=== PATIENT | female | born 1950 | race Caucasian/White ===

== ENCOUNTER → 2017-05-23 | Outpatient (CLI) | payer OTHER ==
[~2017-05-23] MED LIST: ATOR-22 PO; ATV1 PO; B-CO1CAP5; BIOT1CAP3 PO; BLACK CHERRY PO; CALC-393 PO; CHOL20005 PO; CITA20TA9 PO; FLAX12003 PO; FSMD/70 PO; LISI40TA PO; MELO7.5T5 PO; PROP80TA2 PO; ROSU5TAB PO; SIME1CAP28 PO; TRAM-10 PO; VITACAP26; [UNRECOGNIZED DRUG - CODE] PO
[2017-05-23 17:01] LABS: BLOOD UREA NITROGEN 28 mg/dl (7-18)
== END | disposition home or self-care (01) ==
LOC: C.LABBC 14:54
PROVIDERS: ATTEND Anesthesiology
DX: M48.06 Spinal stenosis, lumbar region (principal)

== ENCOUNTER → 2017-05-25 | Outpatient (CLI) | payer OTHER ==
[~2017-05-25] MED LIST changes: -ATV1 PO; -BLACK CHERRY PO; +GADAVIST IV PRN; -ROSU5TAB PO
--- NOTE | 2017-05-25 14:00 | DIAGNOSTIC IMAGING REPORT ---
LUMBAR SPINE MRI WITH AND WITHOUT CONTRAST HISTORY: Pain. Radiculopathy. LUMBAR RADICULOPATHY TECHNIQUE: Multiplanar multisequence MRI of the lumbar spine was performed both before and after the intravenous administration of contrast. COMPARISON: 04/26/2016 FINDINGS: For the purpose of the report the L5-S1 disc space will be located on axial image 27 of 30. Considerable degenerative and postoperative change throughout the entire lumbar region. Operative findings consistent with laminectomies and fusion as well as interpedicular screws from L4 through S1. L3-L4 fusion. All findings appear unchanged compared to the prior study. L1-L2: Broad-based bulging disc. Mild multifactorial narrowing of the spinal canal. No change from the prior study. L2-L3: Moderate spinal stenosis unchanged from the prior study. Moderate/rather significant narrowing of the neuroforamina bilaterally. L3-L4: L3-L4 fusion. Moderate spinal stenosis unchanged. Moderate bilateral foraminal stenosis unchanged L4-L5: Postoperative changes stable. Significant multifactorial spinal stenosis. Similar study compared to the prior exam. L5-S1: Broad-based bulging disc unchanged in the prior study. Mild impact upon the anterior thecal sac. Improved posterior postoperative change within the soft tissues. Bilateral neural foraminal narrowing similar compared to the prior study. IMPRESSION: 1. Findings consistent with generalized degenerative disc change combined with prior operative changes as described. 2. Multilevel spinal stenosis as well as bilateral foraminal narrowing unchanged compared to the prior study. 3. Overall, no change compared to the prior study Electronically signed by: Oren Aaron M.D. 05/25/2017 1:59 PM Dictated Date/Time: 05/25/2017 1:52 PM
== END | disposition home or self-care (01) ==
LOC: C.OPENMRI 11:55
PROVIDERS: ATTEND Anesthesiology
DX: M54.16 Radiculopathy, lumbar region (principal); M99.73 Connective tissue and disc stenosis of intervertebral foramina of lumbar region

== ENCOUNTER 2023-04-26 05:58 | Observation (INO) ==
--- NOTE | 2023-04-07 09:59 | PAT Medication Instructions ---
Medication Instructions Date of Service April 07, 2023 Home Medications Keto Supplement 1 dose PO BID acetaminophen 500 mg tablet (Tylenol Extra Strength) 1,000 mg PO BID ascorbic acid (vitamin C) 500 mg tablet (Vitamin C) 500 mg PO QAM aspirin 81 mg tablet,delayed release 81 mg PO QAM biotin 5,000 mcg chewable tablet 5,000 mcg PO QAM calcium carbonate 500 mg-vitamin D3 3.125 mcg (125 unit) tablet 1 tab PO BID cholecalciferol (vitamin D3) 50 mcg (2,000 unit) tablet (Vitamin D3) 50 mcg PO BID gabapentin 300 mg capsule 300 mg PO DIRECTED melatonin 2.5 mg chewable tablet 2.5 mg PO HS metoprolol succinate 100 mg tablet,extended release 24 hr 100 mg PO HS pantoprazole 40 mg tablet,delayed release (Protonix) 40 mg PO QAM rosuvastatin 20 mg tablet (Crestor) 20 mg PO HS sour santos extract 1,000 mg capsule (Tart Santos Extract) 1,000 mg PO BID tramadol 50 mg tablet 50 mg PO BID venlafaxine 37.5 mg tablet 37.5 mg PO Q OTHER DAY venlafaxine 75 mg tablet 75 mg PO QAM Continue as directed gabapentin 300 mg capsule 300 mg PO DIRECTED venlafaxine 37.5 mg tablet 37.5 mg PO Q OTHER DAY STOP taking 2 weeks before surgery (or as soon as possible if surgery is within 2 weeks) Keto Supplement 1 dose PO BID biotin 5,000 mcg chewable tablet 5,000 mcg PO QAM sour santos extract 1,000 mg capsule (Tart Santos Extract) 1,000 mg PO BID DO NOT take the morning of surgery ascorbic acid (vitamin C) 500 mg tablet (Vitamin C) 500 mg PO QAM calcium carbonate 500 mg-vitamin D3 3.125 mcg (125 unit) tablet 1 tab PO BID cholecalciferol (vitamin D3) 50 mcg (2,000 unit) tablet (Vitamin D3) 50 mcg PO BID Take morning of surgery With a small sip of water, OTHERWISE NOTHING TO EAT OR DRINK AFTER MIDNIGHT: acetaminophen 500 mg tablet (Tylenol Extra Strength) 1,000 mg PO BID aspirin 81 mg tablet,delayed release 81 mg PO QAM (unless directed otherwise by surgeon) pantoprazole 40 mg tablet,delayed release (Protonix) 40 mg PO QAM tramadol 50 mg tablet 50 mg PO BID venlafaxine 75 mg tablet 75 mg PO QAM Take evening before surgery acetaminophen 500 mg tablet (Tylenol Extra Strength) 1,000 mg PO BID calcium carbonate 500 mg-vitamin D3 3.125 mcg (125 unit) tablet 1 tab PO BID cholecalciferol (vitamin D3) 50 mcg (2,000 unit) tablet (Vitamin D3) 50 mcg PO BID melatonin 2.5 mg chewable tablet 2.5 mg PO HS metoprolol succinate 100 mg tablet,extended release 24 hr 100 mg PO HS rosuvastatin 20 mg tablet (Crestor) 20 mg PO HS tramadol 50 mg tablet 50 mg PO BID Other Notes If you have any questions please call us at [phone] or [phone] or [phone] or [phone]
--- NOTE | 2023-04-12 14:35 | History & Physical Report ---
Date of Service April 12, 2023 date of surgery: 04/26/23 Procedure: Right Total Knee Arthroplasty Surgeon: Amadou Mcmahon Assessment & Plan (1) Arthritis of right knee: Plan: Patient presented for preop evaluation prior to right total knee replacement. At this point time is failed conservative measures and would like to proceed with a right total knee replacement. Plan to be an overnight stay at the hospital with discharge home with home health physical therapy for 2 weeks. Follow-up in the office 2 weeks after surgery sooner if she have any issues. Will place on aspirin 81 mg twice a day for 1 month postop DVT prophylaxis The risks and benefits have been discussed including, but not limited to, risk of infection, nerve injury, stiffness, loss of motion, failure to improve, etc. Reasonable outcomes and options of treatment were discussed. An explanation of appropriate alternatives to the procedure that may be advantageous were discussed and their risks and benefits, as well as the risks and benefits of not proceeding with treatment. I offered to answer any additional inquiries concerning the treatment involved. All the patient's questions were answered. The patient is agreeable, understanding of the treatment plan and alternatives, and wishes to proceed with the treatment plan. History of Present Illness Chief Complaint: Right knee pain Primary Care Provider: Hazel Billingsley MD Patient presented today for preop evaluation prior to right total knee replacement scheduled for April 26. She states she had pain in his knee for many years now which is gradually worsened and is now affecting her daily activities including walking standing using stairs. She had previous knee aspirations with corticosteroid injection with minimal relief, she is also tried oral anti-inflammatories and Tylenol. At this point time is failed conservative measures and would like to proceed with a right total knee replacement, she had prior quad tendon repair several years ago. Allergies Allergy/AdvReac Type Severity Reaction Status Date / Time ciprofloxacin [Cipro] Allergy Unknown BODY ACHES Verified 04/07/23 08:32 Home Medications Medication Instructions Recorded Confirmed Type Keto Supplement 1 dose PO BID 04/07/23 04/07/23 History acetaminophen 500 mg tablet 1,000 mg PO BID 04/07/23 04/07/23 History (Tylenol Extra Strength) ascorbic acid (vitamin C) 500 mg 500 mg PO QAM 04/07/23 04/07/23 History tablet (Vitamin C) aspirin 81 mg tablet,delayed 81 mg PO QAM 04/07/23 04/07/23 History release biotin 5,000 mcg chewable tablet 5,000 mcg PO QAM 04/07/23 04/07/23 History calcium carbonate 500 mg-vitamin 1 tab PO BID 04/07/23 04/07/23 History D3 3.125 mcg (125 unit) tablet cholecalciferol (vitamin D3) 50 50 mcg PO BID 04/07/23 04/07/23 History mcg (2,000 unit) tablet (Vitamin D3) gabapentin 300 mg capsule 300 mg PO DIRECTED 04/07/23 04/07/23 History melatonin 2.5 mg chewable tablet 2.5 mg PO HS 04/07/23 04/07/23 History metoprolol succinate 100 mg 100 mg PO HS 04/07/23 04/07/23 History tablet,extended release 24 hr pantoprazole 40 mg tablet,delayed 40 mg PO QAM 04/07/23 04/07/23 History release (Protonix) rosuvastatin 20 mg tablet (Crestor) 20 mg PO HS 04/07/23 04/07/23 History sour santos extract 1,000 mg 1,000 mg PO BID 04/07/23 04/07/23 History capsule (Tart Santos Extract) tramadol 50 mg tablet 50 mg PO BID 04/07/23 04/07/23 History venlafaxine 37.5 mg tablet 37.5 mg PO Q OTHER DAY 04/07/23 04/07/23 History venlafaxine 75 mg tablet 75 mg PO QAM 04/07/23 04/07/23 History Past Med/Surg History Medical History Cardiac murmur Depression Dyslipidemia HTN (hypertension) Lumbar stenosis with neurogenic claudication Neuropathy toes Osteoarthritis Peptic ulcer disease protonix for this Surgical History H/O knee surgery right for muscle tear History of cardiac cath 2017 > no stents History of carpal tunnel release right History of cataract surgery bilat History of colonoscopy History of esophagogastroduodenoscopy (EGD) History of tooth extraction Hx of aortic valve replacement [facility] in 2019 > follows with Dr. Grigsby with [facility] S/P cholecystectomy S/P TKR (total knee replacement) left Family History Mother Diabetes Aunt Colon cancer Social History Smoking Status: Never smoker Second Hand Exposure: No; Do You Dip or Chew Tobacco: No; Tobacco Cessation Education Requested by Patient: No Hx Alcohol Use: Yes Alcohol type: wine Hx Substance Use: No Preferred Language: Turkmen Communication Ability: Effective Family Practice Medical Doctor Required: No Beliefs That Will Affect Care: None Current Living Situation: Alone Other Information That Helps Us Care for You: No Feels Safe at Home: Yes Safety Concerns: Feels Safe At This Time Assistive Devices: Glasses and Walker Review of Systems Review of Systems: All systems reviewed & are unremarkable except as noted in HPI & below Constitutional: no fever, no chills and no sweats Respiratory: no cough and no dyspnea Cardiovascular: no chest pain, no dyspnea and no orthopnea Gastrointestinal: no abdominal pain, no nausea and no vomiting Musculoskeletal: as per Subjective / HPI Physical Exam Physical Exam: HT: 5ft 7in WT: 133.8kg Constitutional: WD/WN, vitals as above no acute distress Respiratory: normal respiratory effort, lungs clear to auscultation no respiratory distress, no labored breathing and does not use accessory muscles Cardiovascular: RRR, no murmur, no edema Gastrointestinal (Abdomen): normal bowel sounds, soft, nontender, no hepatosplenomegaly Musculoskeletal: Knee: + knee abnormal to inspection (RIGHT KNEE), + effusion (+1 effusion), + surgical incision (healed mid incision), + limited ROM of knee (ROM 0/3/110), + knee ROM with crepitation, + joint line tenderness (medial joint line) and + Rip's sign positive; no deformity, no skin erythema, no ecchymosis, no valgus laxity, no varus laxity, anterior drawer test negative, Markie's sign negative and pivot shift test negative Results & Data Results & Data Diagnostic Findings Right Knee X-ray: Right knee series showing advanced degenerative changes to the right knee, tricompartmental narrowing with osteophyte formation and subchondral sclerosis n oted. no acute bony pathology noted.
--- NOTE | 2023-04-15 12:03 | Anesthesiology Consultation ---
Date of Service April 15, 2023 Assessment & Plan (1) Encounter for pre-operative examination: - COVID screening: Per assessment on 04/07: No known COVID-19 positive contacts or current COVID-19 related symptoms. Travel screen negative. Patient vaccinated. At surgeon discretion if preop Covid testing being done. - Outpatient joint assessment: Pt currently scheduled for inpatient pathway. If surgeon requests review for outpatient joint pathway, patient is not recommended candidate for outpatient joint program from anesthesia standpoint. - S/P Left TKA (05/23/18): Grade 3 view, MAC#3, ETT 7.5 at [facility]. "Small cut to right side lower lip with intubation" - Cardiology visit (03/30/23): "Patient with preoperative risk assessment prior to knee surgery. Hx of aortic stenosis with bioprosthetic AVR. Also with Hx of diastolic heart failure.. From a functional capacity standpoint, she is able to perform activities above 4 MET's.. She does not attest any chest pain when climbing stairs but does have SOB which is stable/chronic..Do not recommend further invasive or noninvasive cardiovascular testing or procedures prior to proceeding with planned surgery. Patient is well optimized from a cardiac standpoint to proceed with her scheduled procedure.. This pt has cardiomyopathy with history of diastolic heart failure; therefore, judicious administration of IV fluids in the perioperative period is warranted as she is at risk of volume overload. I would recommend monitoring volume status closely." Chart Review Chart Review: Acceptable Risk for Surgery and Patient seen in Pre Admission Testing Teaching & Discussion Pre-Anesthesia Teaching/Discussion Notes: Instructed NPO after midnight before surgery,except medications with 15 cc of water. Medication instructions provided according to the PAT guidelines. History Surgery Operation Date: 04/26/23 07:15 Proposed Procedures p Right Total Knee Arthroplasty - Amadou Mcmahon DO Height/Weight Height: 5 ft 7 in Weight: 135.7 kg Allergies Allergy/AdvReac Type Severity Reaction Status Date / Time ciprofloxacin [Cipro] Allergy Unknown BODY ACHES Verified 04/07/23 08:32 Medications Home Medications Medication Instructions Recorded Confirmed Last Taken Keto Supplement 1 dose PO BID 04/07/23 04/07/23 Unknown acetaminophen 500 mg tablet 1,000 mg PO BID 04/07/23 04/07/23 Unknown (Tylenol Extra Strength) ascorbic acid (vitamin C) 500 mg 500 mg PO QAM 04/07/23 04/07/23 Unknown tablet (Vitamin C) aspirin 81 mg tablet,delayed 81 mg PO QAM 04/07/23 04/07/23 Unknown release biotin 5,000 mcg chewable tablet 5,000 mcg PO QAM 04/07/23 04/07/23 Unknown calcium carbonate 500 mg-vitamin 1 tab PO BID 04/07/23 04/07/23 Unknown D3 3.125 mcg (125 unit) tablet cholecalciferol (vitamin D3) 50 50 mcg PO BID 04/07/23 04/07/23 Unknown mcg (2,000 unit) tablet (Vitamin D3) gabapentin 300 mg capsule 300 mg PO DIRECTED 04/07/23 04/07/23 Unknown melatonin 2.5 mg chewable tablet 2.5 mg PO HS 04/07/23 04/07/23 Unknown metoprolol succinate 100 mg 100 mg PO HS 04/07/23 04/07/23 Unknown tablet,extended release 24 hr pantoprazole 40 mg tablet,delayed 40 mg PO QAM 04/07/23 04/07/23 Unknown release (Protonix) rosuvastatin 20 mg tablet (Crestor) 20 mg PO HS 04/07/23 04/07/23 Unknown sour santos extract 1,000 mg 1,000 mg PO BID 04/07/23 04/07/23 Unknown capsule (Tart Santos Extract) tramadol 50 mg tablet 50 mg PO BID 04/07/23 04/07/23 Unknown venlafaxine 37.5 mg tablet 37.5 mg PO Q OTHER DAY 04/07/23 04/07/23 Unknown venlafaxine 75 mg tablet 75 mg PO QAM 04/07/23 04/07/23 Unknown Past Medical History Medical History Aortic valve disease AVR (2019) Follows with Dr. Grigsby/[facility] Depression Diastolic heart failure Dyslipidemia HTN (hypertension) Lumbar stenosis with neurogenic claudication Neuropathy toes Osteoarthritis Peptic ulcer disease Reason for protonix Exercise / Class Metabolic Activity III < 4 Walking/Shop/Light housework (uses walker) Past Family History Family History Mother Diabetes Aunt Colon cancer Past Surgical History Surgical History H/O knee surgery right for muscle tear History of cardiac cath 2018 > no stents History of carpal tunnel release right History of cataract surgery R/L History of colonoscopy History of esophagogastroduodenoscopy (EGD) History of tooth extraction Hx of aortic valve replacement [facility] (2019) S/P cholecystectomy S/P TKR (total knee replacement) Left TKA (05/23/18): Grade 3 view, MAC#3, ETT 7.5 at [facility]. "Small cut to right side lower lip with intubation" Past Anesthesia History No Hx of Anesthesia Complications and No Family Hx of Anesthesia Complications History of PONV No Hx of PONV and No Hx of Motion Sickness Social History Smoking Status: Never smoker Do You Dip or Chew Tobacco: No Hx Alcohol Use: Yes Alcohol type: wine alcohol intake frequency: holidays/special occasions only Hx Substance Use: No substance use type: does not use Review of Systems Patient denies chest pain, shortness of breath, fever, chills, cough, wheezing, palpitations. Physical Exam Vital Signs VITALS BP 108/73 P 73 TEMP 98.9 SP02 95%RA RESP 16 PHYSICAL Full cervical extension range of motion. Full TMJ range of motion. TMD 3 finger breaths (difficult to palpate) Mallampati Score 3 Dentition: intact Lungs: clear throughout to auscultation Cardiac: regular rate and rhythm, no murmurs noted Spine: normal Carotid arteries: negative bruit Extremities: no LE edema Thick neck Lab Results Anesthesia Preop Results Results Anesthesia Widget: WBC 6.94 K/ul (4.8-10.8) 04/15/23 Hgb 13.0 g/dl (12.0-16.0) 04/15/23 Hct 41.3 % (37.0-47.0) 04/15/23 Plt 222 K/uL (130-400) 04/15/23 Na 140 mmol/L (136-145) 04/15/23 K 4.7 mmol/L (3.5-5.1) 04/15/23 Cl 103 mmol/L (98-107) 04/15/23 CO2 30 mmol/L (21-32) 04/15/23 BUN 28 mg/dl (6-23) H 04/15/23 Creat 1.01 mg/dl (0.6-1.2) 04/15/23 Glucose Level 84 mg/dl (70-99(Fasting)) 04/15/23 PT 10.9 Seconds (9.0-12.0) 04/15/23 PTT 24.9 Seconds (21.0-31.0) 04/15/23 INR 1.0 (0.9-1.1) 04/15/23 HA1c 6.1 % (4.5-5.6) H 04/15/23 Urine Color Yellow 04/15/23 Urine Appearance Clear (Clear) 04/15/23 Urine pH 5.5 (4.5-7.5) 04/15/23 Urine Specific [place] 1.026 (1.000-1.030) 04/15/23 Urine Protein Negative (Negative) 04/15/23 Urine Glucose (UA) Negative (Negative) 04/15/23 Urine Ketones Trace (Negative) H 04/15/23 Urine Blood Negative (Negative) 04/15/23 Urine Nitrite Negative (Negative) 04/15/23 Urine Bilirubin Negative (Negative) 04/15/23 Urine Urobilinogen Negative (Negative) 04/15/23 Urine Leukocyte Esterase Negative (Negative) 04/15/23 Blood Type O Positive 04/15/23 Antibody Screen NEGATIVE 04/15/23 Testing Electrocardiogram Date: 03/30/23 Sinus rhythm at 73 bpm. Nonspecific QRS widening. PRWPnonspecific- consider old anterior infarct. Anterior lateral ST elevationrepolarization variant. Nondiagnostic nonspecific ST depression. Chest X-Ray Date: 04/15/23 FINDINGS: PA and lateral chest radiographs are compared to study dated 05/23/2018. The patient is status post midline sternotomy and cardiac valve surgery. The heart is top normal for projection. The lungs and pleural spaces are clear noting bibasilar scarring/atelectasis. There is no pneumothorax. The skeletal structures are osteopenic. The bony thorax appears intact. Degenerative change is noted in the shoulders and spine. Fusion hardware is partially visualized in the lumbar spine. Cholecystectomy clips are noted in the upper abdomen. IMPRESSION: No active disease in the chest. Echocardiogram Date: 12/08/22 EF 60%. No obvious RWMA. Bioprosthesis AV (not very well seen), no significant aortic stenosis or AI. PASP cannot be estimated but at least 46. Cardiac Catheterization Date: 09/08/20 No angiographically significant coronary disease. Mild pulmonary hypertension. Severe aortic stenosis by echocardiography. Moderate asymmetric septal hypertrophy by echocardiography. > subsequent AVR performed* COVID-19 Risk Screen Screening Information COVID-19 Screen Date: 04/15/23 Exposure 21 Days Family/Household +COVID Last 21 Days: No Exposure 10 Days Any COVID Exposure Last 10 Days: No Symptoms Last 10 Days Experienced COVID Sx Last 10 Days: No + COVID 0-90 Days COVID + in Last 0-90 Days: No
[2023-04-26] MEDS ORDERED: dexAMETHasone 4 MG TAB PO SCH (06:00)
[2023-04-26] MEDS ORDERED: CeleBREX 200 MG CAP PO SCH (06:00)
[2023-04-26] MEDS ORDERED: GABAPENTIN 300 MG CAP PO SCH (06:00)
[2023-04-26] MEDS ORDERED: TRANEXAMIC ACID 1,000 MG **IV Pre-op IV SCH (06:00)
[2023-04-26] MEDS ORDERED: FAMOTIDINE 20 MG TAB PO SCH (06:00)
[2023-04-26] MEDS ORDERED: ROPIVACAINE 0.5% HCL/PF 150 MG, BUPIVACAINE 0.75% MPF 20 ML, EPINEPHrine 30MG/30ML (OR ... INFIL SCH (06:00)
[2023-04-26] MEDS ORDERED: METOCLOPRAMIDE HCL 10 MG TABLET PO SCH (06:00)
[2023-04-26] MEDS ORDERED: ACETAMINOPHEN 500 MG TAB PO SCH (06:00)
[2023-04-26] MEDS ORDERED: LR 500ML BOLUS, THEN 15ML/HR IV SCH (06:00)
[2023-04-26] MEDS ORDERED: TRANEXAMIC ACID 1,000 MG **IV Intra-op IV SCH (06:00)
[2023-04-26] MEDS ORDERED: BUPIVACAINE 0.5 % 5 MG/1 ML PF 10ML VIAL ONE (06:24)
[2023-04-26] MEDS ORDERED: ROPIVACAINE 0.5% 5 MG/ML 30 ML VIAL ONE (06:24)
[2023-04-26] MEDS ORDERED: MIDAZOLAM HCL 1 MG/ML 2ML VIAL ONE (06:47)
[2023-04-26] MEDS ORDERED: PROPOFOL IV EMULSION 10 MG/ML 20 ML VIAL IV ONE (06:50)
[2023-04-26] MEDS ORDERED: ONDANSETRON INJ 2 MG/ML 2 ML VIAL ONE ×2 (07:04→09:17)
[2023-04-26] MEDS ORDERED: fentaNYL citrate PF 100 MCG/2 ML VIAL ONE ×3 (07:04→10:33)
--- NOTE | 2023-04-26 07:13 | History & Physical Bridge Note ---
Date of Service April 26, 2023 History & Physical Bridge Note I have examined the patient, reviewed the History & Physical and in the interval since the performance of the History & Physical I have noted the following changes of clinical significance: no changes noted
[2023-04-26] MEDS ORDERED: ORTHO JOINT ANESTHETIC ONE (07:15)
[2023-04-26] MEDS ORDERED: ONDANSETRON INJ 2 MG/ML 2 ML VIAL IV PRN ×2 (07:34→12:07)
[2023-04-26] MEDS ORDERED: ePHEDrine sulfate 50 MG/ML AMP IV PRN (07:34)
[2023-04-26] MEDS ORDERED: fentaNYL citrate PF 100 MCG/2 ML VIAL IV PRN (07:34)
[2023-04-26] MEDS ORDERED: ATROPINE SULFATE 0.1 MG/ML 10ML SYR IV PRN (07:34)
[2023-04-26] MEDS ORDERED: ROCURONIUM BROMIDE 10 MG/ML 5 ML VIAL IV ONE (08:10)
[2023-04-26] MEDS ORDERED: KETAMINE 50 MG/5 ML SYRINGE ONE (08:59)
[2023-04-26] MEDS ORDERED: PHENYLEPHRINE 100MCG/ML 5ML SYR ONE (09:16)
[2023-04-26] MEDS ORDERED: GLYCOPYRROLATE 0.2 MG/ML VIAL ONE (09:17)
[2023-04-26] MEDS ORDERED: DEXAMETHASONE SOD INJ 4 MG/ML VIAL ONE (09:17)
[2023-04-26] MEDS ORDERED: SUGAMMADEX SODIUM 200 MG/2 ML VIAL IV ONE (10:05)
--- NOTE | 2023-04-26 10:06 | Operative Report ---
Post Operative Report Pre & Post Diagnosis Operation Date: 04/26/23 08:15 Pre-Op Diagnosis: Right Knee Osteoarthritis Post-Op Diagnosis: Right Knee Osteoarthritis I identified the patient and participated in the time-out.: Yes Procedure Operation Date: 04/26/23 08:15 Actual Procedures p Right Total Knee Arthroplasty(Right) Utilizing [employer] journey 2 long block total knee size femur 5 tibia 4 poly 9 patella 35 zuri Mcmahon DO Surgeon Amadou Mcmahon DO Lead Level Designer Philip Segura Estimated Blood Loss 5 Findings Consistent with Post-Op Diagnosis Patient presents with severe end-stage tricompartmental degenerative joint disease varus alignment subchondral sclerosis marginal osteophytes subchondral cystic changes as well as moderate to large effusion Specimens Bone and cartilage Drains Medium bore Hemovac Anesthesia Type MAC Spinal Regional Complications none Disposition Accompanied Patient To Recovery: No Disposition: Recovery Room Indications Patient presents with severe end-stage tricompartmental degenerative joint disease of the right knee no response to conservative management patient failed attempted conservative management clinic physical therapy anti-inflammatories relative rest activity modification corticosteroid injection viscosupplementation above intraoperative findings were noted Description of Procedure After proper prepping and draping of the Right lower extremity anterior midline incision was made over the region of the extensor extensor mechanism after meticulous hemostasis was obtained and maintained in subcutaneous tissues a medial parapatellar incision was made The patella was subluxed lateralward the medial lateral gutter were cleaned from any hypertrophic synovitis and scar tissue of the distal femoral block was placed and the distal femoral osteotomy cut was made subsequently the chamfers anterior and posterior osteotomy cuts were made utilizing the 4-in-1 block the tibia was subsequently subluxed anteriorward medial and ateral meniscal remnants were excised in their entirety remnants of the anterior and posterior cruciate ligaments were excised in their entirety excellent exposure of the proximal tibia was obtained the tibial osteotomy guide was placed on the proximal tibial osteotomy cut was made once again the knee was irrigated with copious amounts of sterile saline solution the patella was subsequently everted lateralward thickened scar tissue around the patella was removed the patella was subsequently cut utilizing a freehand technique and was drilled prepared for final preparation and placement of patella socially flexion-extension gaps were checked and the equal and symmetric trials were placed to the appropriate femoral and tibial trials with poly-spacer being placed for equal flexion and extension gaps and full range of motion including extension to 0 and flexion to 140 the trial components after having been taken to recovery range of motion was subsequently removed meticulous hemostasis was obtained and maintained subsequently a knee block injection of joint cocktail including ropivacaine 0.5% 150 mg. Bupivacaine 0.5% epinephrine 1-200,030 mL's toradol 30 mg dexamethasone 4 mg ketamine 10 mg clonidine 100 micrograms normal saline solution 30 mg was infiltrated into the soft tissues of the posterior knee medial lateral gutters and periosteal synovium special attention was paid to protect neurovascular structures at all times subsequently trial components having been removed the knee was irrigated with sterile saline solution. debris was removed the proximal tibia was subsequently prepared and was made ready for the placement of the tibial component tibial component was also cemented and tamped into position the femoral component was subsequently placed and cemented in the position the patellar component was subsequently cemented in position because hemostasis once again obtained and maintained wound having been thoroughly irrigated with debridement and debridement lavage was performed as well as a medial parapatellar incision closed with #1 Vicryl in interrupted fashion subcutaneous was closed with #2 Vicryl skin was closed with skin clips. PA-C was necessary for prepping and drapping as well as wound closure of deep fascia Sub cutaneous tissue and skin and was necessary for the case. A sterile compressive dressing was placed patient was taken to recovery in stable condition of report dictated by Lisandro I attest to the content of the Intraoperative Record and any orders documented therein. Any exceptions are noted below.Due to the complex nature of the procedure, the entire surgery was performed with the operational assistance of Philip RIZVI. The preschool assistant principal, under direct supervision, was involved in the actual performance of all aspects of the surgical procedure including hemostasis, tissue retraction and incision, instrument management, patient positioning, and wound closure. I attest to the content of the Intraoperative Record and any orders documented therein. Any exceptions are noted below.
--- NOTE | 2023-04-26 11:29 | XRay Report ---
XR knee RT 1 or 2V routine CLINICAL HISTORY: Surgical Post Op TECHNIQUE: 2 views of the right knee were obtained. Comparison: None available at the time of this dictation. FINDINGS: Patient is status post total knee arthroplasty with expected postsurgical changes including soft tiss ue swelling and subcutaneous emphysema. No periarticular lucency or hardware fracture is seen. IMPRESSION: Expected postoperative appearance status post placement of total knee arthroplasty. ACT 112: Negative or not required by law. Electronically signed by: Yung Vee M.D. 04/26/2023 11:26 AM
[2023-04-26] MEDS ORDERED: bisacodyL 10 MG SUPP PR PRN (12:07)
[2023-04-26] MEDS ORDERED: HYDROmorphone INJ 0.5 MG/0.5 ML SYR IV PRN (12:07)
[2023-04-26] MEDS ORDERED: diphenhydrAMINE 50 MG/ML VIAL IV PRN (12:07)
[2023-04-26] MEDS ORDERED: NALOXONE HCL 0.4 MG/1 ML VIAL/CARP IV PRN (12:07)
[2023-04-26] MEDS ORDERED: VENLAFAXINE HCL 37.5 MG TAB PO SCH (12:07)
[2023-04-26] MEDS ORDERED: MAGNESIUM HYDROXIDE SUSP 30 ML UDC PO PRN (12:07)
[2023-04-26] MEDS: SODIUM CHLORIDE 0.9% 1000ML 1,000 ML IV SCH (12:38)
--- NOTE | 2023-04-26 12:49 | Anesthesiology Progress Note ---
Date of Service April 26, 2023 Anesthesia Post Procedure Vital Signs Vital Signs: Temp Pulse Pulse Resp BP Pulse Ox O2 Del Method 04/26/23 12:30 36.5 C 83 16 147/79 H 98 Nasal Cannula 04/26/23 12:00 Nasal Cannula 04/26/23 12:00 36.5 C 83 16 159/91 H 98 Nasal Cannula 04/26/23 11:50 88 16 150/87 H 98 Nasal Cannula 04/26/23 11:40 36.4 C L 81 16 154/85 H 99 Nasal Cannula 04/26/23 11:30 84 16 163/84 H 97 Nasal Cannula 04/26/23 11:20 85 18 161/87 H 95 Nasal Cannula 04/26/23 11:10 88 16 153/96 H 99 Oxymask 04/26/23 11:00 83 16 139/77 98 Oxymask 04/26/23 10:50 83 14 135/71 97 Oxymask 04/26/23 10:47 36.2 C L 82 14 133/80 97 Oxymask 04/26/23 06:31 Room Air 04/26/23 06:31 36.6 C 72 20 158/86 H 95 Room Air O2 Flow Rate 04/26/23 12:30 2 04/26/23 12:00 3 04/26/23 12:00 3 04/26/23 11:50 3 04/26/23 11:40 3 04/26/23 11:30 3 04/26/23 11:20 3 04/26/23 11:10 6 04/26/23 11:00 6 04/26/23 10:50 6 04/26/23 10:47 6 04/26/23 06:31 04/26/23 06:31 Pain Intensity Right Knee: Pain Intensity: 7 Transfer of Care Handoff Completed per policy Notes Mental Status: alert / awake / arousable and participated in evaluation Patient Amnestic to Procedure: Yes Nausea / Vomiting: adequately controlled Pain: adequately controlled Airway Patency, RR, SpO2: stable & adequate BP & HR: stable & adequate Hydration State: stable & adequate Neuraxial Anesthesia: was administered and sensory block is resolving Anesthetic Complications: no major complications apparent and Pt Satisfied with anesthetic care
[2023-04-26] MEDS: ACETAMINOPHEN 500 MG TAB PO SCH ×2 (14:44→21:30)
[2023-04-26] MEDS: GABAPENTIN 300 MG CAP PO SCH (16:29)
[2023-04-26] MEDS: ceFAZolin 2000MG 2,000 MG/15 ML SYR IV SCH (16:29)
[2023-04-26] MEDS ORDERED: ROSUVASTATIN CALCIUM 20 MG TAB PO SCH (21:00)
[2023-04-26] MEDS ORDERED: GABAPENTIN 600 MG TAB PO SCH (21:00)
[2023-04-26] MEDS ORDERED: MELATONIN 3 MG TAB PO SCH (21:00)
[2023-04-26] MEDS ORDERED: SENNA 8.6 MG TAB PO SCH (21:00)
[2023-04-26] MEDS ORDERED: METOPROLOL SUCC 50MG EXT REL TAB PO SCH (21:00)
[2023-04-26] MEDS: CALCIUM 600MG + VIT D 400 IU TAB PO SCH (21:29)
[2023-04-26] MEDS: ASPIRIN 81 MG ECTAB PO SCH (21:29)
[2023-04-26] MEDS: DOCUSATE SODIUM 100 MG CAP PO SCH (21:30)
[2023-04-26] MEDS: CHOLECALCIFEROL 1,000 UNITS 25 MCG TAB PO SCH (21:30)
[2023-04-26] MEDS: oxyCODONE HCL IR 5 MG TAB (IMMEDIATE RELEASE) PO PRN (21:37)
[2023-04-27] MEDS: SODIUM CHLORIDE 0.9% 1000ML 1,000 ML IV SCH (00:11)
[2023-04-27] MEDS: ceFAZolin 2000MG 2,000 MG/15 ML SYR IV SCH (00:20)
[2023-04-27] MEDS: ACETAMINOPHEN 500 MG TAB PO SCH (06:17)
[2023-04-27] MEDS: oxyCODONE HCL IR 5 MG TAB (IMMEDIATE RELEASE) PO PRN ×2 (06:19→11:08)
[2023-04-27 06:27] LABS: Hematocrit (blood only) 33.5 % (37.0-47.0); Hemoglobin 10.7 g/dl (12.0-16.0); Mean Corpuscular Hemoglobin 30.1 pg (25.0-34.0); Mean Corpuscular Hgb Conc 31.9 g/dL (32.0-36.0); Mean Corpuscular Volume 94.4 fL (80.0-100.0); Mean Platelet Volume 10.7 fL (9.4-12.4); Platelet Count 209 K/uL (130-400); RDW Coefficient of Variation 14.9 % (11.5-14.5); RDW Standard Deviation 51.3 fL (36.4-46.3); Red Blood Count 3.55 M/uL (4.20-5.40); White Blood Count 11.39 K/ul (4.8-10.8)
[2023-04-27 06:42] LABS: BUN Creatinine Ratio 26.7 (10-20); Calcium 8.6 mg/dl (8.6-10.3); Est GFR (African American) 54.1 ml/min; Est GFR (Non-African American) 46.7 ml/min
--- NOTE | 2023-04-27 07:26 | Orthopedic Progress Note ---
Date of Service April 27, 2023 Assessment & Plan (1) Arthritis of right knee: Plan: Postop day 1 status post right total knee arthroplasty. PT/OT protocols. Weightbearing as tolerated. DVT prophylaxis-aspirin p.o. twice daily, SCDcal, JAG sauceda. Pain management is written DC planning-patient is planning for home health services upon discharge. Admission and Anticipated Discharge Date Admission Date: April 26, 2023 Subjective Postop day 1 Patient sitting in her chair at the bedside. She is eating her breakfast. She has no complaints this morning. Pain is controlled. She denies shortness of breath, chest pain, lightheadedness. Physical Exam Physical Exam: Dressings are clean, dry, and intact. Calves are soft nontender. Neurovascular is intact. Toes are mobile. She has good dorsiflexion and plantarflexion of her right foot. Hemovac drainage was 25 mL in the previous shift. Results & Data Vital Signs (Past 12 Hours) Vital Signs Temp Pulse Resp BP Pulse Ox O2 Del Method 04/27/23 06:15 36.6 C 76 18 109/67 95 Room Air 04/27/23 01:29 36.4 C L 78 18 119/73 95 Room Air 04/26/23 19:30 Room Air 04/26/23 21:33 36.6 C 87 18 134/75 96 Room Air Laboratory Results Laboratory Results WBC 11.39 K/ul (4.8-10.8) H 04/27/23 06:00 RBC 3.55 M/uL (4.20-5.40) L 04/27/23 06:00 Hgb 10.7 g/dl (12.0-16.0) L 04/27/23 06:00 Hct 33.5 % (37.0-47.0) L 04/27/23 06:00 MCV 94.4 fL (80.0-100.0) 04/27/23 06:00 MCH 30.1 pg (25.0-34.0) 04/27/23 06:00 MCHC 31.9 g/dL (32.0-36.0) L 04/27/23 06:00 RDW Std Deviation 51.3 fL (36.4-46.3) H 04/27/23 06:00 RDW Coeff of Manuel 14.9 % (11.5-14.5) H 04/27/23 06:00 Plt Count 209 K/uL (130-400) 04/27/23 06:00 MPV 10.7 fL (9.4-12.4) 04/27/23 06:00 Sodium 139 mmol/L (136-145) 04/27/23 06:00 Potassium 5.0 mmol/L (3.5-5.1) 04/27/23 06:00 Chloride 105 mmol/L (98-107) 04/27/23 06:00 Carbon Dioxide 29 mmol/L (21-32) 04/27/23 06:00 Anion Gap 5 (3-11) 04/27/23 06:00 BUN 31 mg/dl (6-23) H 04/27/23 06:00 Creatinine 1.16 mg/dl (0.6-1.2) 04/27/23 06:00 Est Cr Clr Drug Dosing 62.0 ml/min 04/27/23 06:00 Est GFR ( Amer) 54.1 ml/min 04/27/23 06:00 Est GFR (Non-Af Amer) 46.7 ml/min 04/27/23 06:00 BUN/Creatinine Ratio 26.7 (10-20) H 04/27/23 06:00 Glucose 146 mg/dl (70-99(Fasting)) H 04/27/23 06:00 Calcium 8.6 mg/dl (8.6-10.3) 04/27/23 06:00 SARS-CoV-2, RNA, NAAT NEGATIVE (NEGATIVE) 04/26/23 Unknown Impressions Knee X-Ray 04/26/23 10:52 XR knee RT 1 or 2V routine CLINICAL HISTORY: Surgical Post Op TECHNIQUE: 2 views of the right knee were obtained. Comparison: None available at the time of this dictation. FINDINGS: Patient is status post total knee arthroplasty with expected postsurgical changes including soft tissue swelling and subcutaneous emphysema. No periarticular lucency or hardware fracture is seen. IMPRESSION: Expected postoperative appearance status post placement of total knee arthroplasty. ACT 112: Negative or not required by law. Electronically signed by: Yung Vee M.D. 04/26/2023 11:26 AM
[2023-04-27] MEDS: CALCIUM 600MG + VIT D 400 IU TAB PO SCH (07:46)
[2023-04-27] MEDS: CHOLECALCIFEROL 1,000 UNITS 25 MCG TAB PO SCH (07:46)
[2023-04-27] MEDS: ASPIRIN 81 MG ECTAB PO SCH (07:46)
[2023-04-27] MEDS: DOCUSATE SODIUM 100 MG CAP PO SCH (07:46)
[2023-04-27] MEDS: GABAPENTIN 300 MG CAP PO SCH ×2 (08:13→11:09)
[2023-04-27] MEDS ORDERED: PANTOprazole 40 MG TAB PO SCH (09:00)
[2023-04-27] MEDS ORDERED: ASCORBIC ACID 500 MG TAB PO SCH (09:00)
[2023-04-27] MEDS ORDERED: VENLAFAXINE HCL XR 75 MG CAPXR PO SCH (09:00)
[2023-04-27] MEDS ORDERED: MULTIVITAMIN TAB PO SCH (09:00)
[2023-04-27] MEDS ORDERED: NON-FORMULARY MEDICATION (Biotin 5,000 mcg Tablet,Chewable) PO SCH (09:00)
--- NOTE | 2023-04-28 15:53 | Discharge Summary ---
Date of Service April 28, 2023 Admission HPI Per Admitting Provider Patient presented today for preop evaluation prior to right total knee replacement scheduled for April 26. She states she had pain in his knee for many years now which is gradually worsened and is now affecting her daily activities including walking standing using stairs. She had previous knee aspirations with corticosteroid injection with minimal relief, she is also tried oral anti-inflammatories and Tylenol. At this point time is failed conservative measures and would like to proceed with a right total knee replacement, she had prior quad tendon repair several years ago. Admission Exam Per Admitting Provider Physical Exam: HT: 5ft 7in WT: 133.8kg Constitutional: WD/WN, vitals as above no acute distress Respiratory: normal respiratory effort, lungs clear to auscultation no respiratory distress, no labored breathing and does not use accessory muscles Cardiovascular: RRR, no murmur, no edema Gastrointestinal (Abdomen): normal bowel sounds, soft, nontender, no h epatosplenomegaly Musculoskeletal: Knee: + knee abnormal to inspection (RIGHT KNEE), + effusion (+1 effusion), + surgical incision (healed mid incision), + limited ROM of knee (ROM 0/3/110), + knee ROM with crepitation, + joint line tenderness (medial joint line) and + Rip's sign positive; no deformity, no skin erythema, no ecchymosis, no valgus laxity, no varus laxity, anterior drawer test negative, Markie's sign negative and pivot shift test negative Principal Diagnosis Right Knee Osteoarthritis Discharge Data Allergies Allergy/AdvReac Type Severity Reaction Status Date / Time ciprofloxacin [Cipro] AdvReac Unknown BODY ACHES Verified 04/26/23 06:28 Procedures Performed Operation Date: 04/26/23 08:15 Actual Procedures p Right Total Knee Arthroplasty(Right) - Amadou Mcmahon DO Ordered Studies 04/26/23 05:00 US - OR guided needle placemen Routine Hospital Course (1) Arthritis of right knee: Patient:JAKOB MART Admit Date:04/26/23 MR#:[id number] Att Phy:Amadou Mcmahon D.O. Acct ID:[id number] Lianet Phy:Bee Candelario DO Date:1950 Fam Phy: Age:73 Location:3E Sex:F Room/Bed:E319-1 cc: ~ *NOTICE TO RECEIVING CONSTITUTION PARTY/AGENCY This information is strictly Confidential and protected under [place] law. [place] law prohibits you from making any further disclosure of this information unless further disclosure is expressly permitted by the written consent of the person to whom it pertains or is authorized by law. A general authorization for the release of medical or other information is not sufficient for this purpose. Hospital accepts no responsibility if the information is made available to any other person, INCLUDING THE PATIENT. Date of Service April 27, 2023 Assessment & Plan (1) Arthritis of right knee: Plan: Postop day 1 status post right total knee arthroplasty. PT/OT protocols. Weightbearing as tolerated. DVT prophylaxis-aspirin p.o. twice daily, SCDs, JAG sauceda. Pain management is written DC planning-patient is planning for home health services upon discharge. Admission and Anticipated Discharge Date Admission Date: April 26, 2023 Subjective Postop day 1 Patient sitting in her chair at the bedside. She is eating her breakfast. She has no complaints this morning. Pain is controlled. She denies shortness of breath, chest pain, lightheadedness. Physical Exam Physical Exam: Dressings are clean, dry, and intact. Calves are soft nontender. Neurovascular is intact. Toes are mobile. She has good dorsiflexion and plantarflexion of her right foot. Hemovac drainage was 25 mL in the previous shift. Results & Data Vital Signs (Past 12 Hours) Vital Signs Temp Pulse Resp BP Pulse Ox O2 Del Method 04/27/23 06:15 36.6 C 76 18 109/67 95 Room Air 04/27/23 01:29 36.4 C L 78 18 119/73 95 Room Air 04/26/23 19:30 Room Air 04/26/23 21:33 36.6 C 87 18 134/75 96 Room Air Laboratory Results Laboratory Results WBC 11.39 K/ul (4.8-10.8) H 04/27/23 06:00 RBC 3.55 M/uL (4.20-5.40) L 04/27/23 06:00 Hgb 10.7 g/dl (12.0-16.0) L 04/27/23 06:00 Hct 33.5 % (37.0-47.0) L 04/27/23 06:00 MCV 94.4 fL (80.0-100.0) 04/27/23 06:00 MCH 30.1 pg (25.0-34.0) 04/27/23 06:00 MCHC 31.9 g/dL (32.0-36.0) L 04/27/23 06:00 RDW Std Deviation 51.3 fL (36.4-46.3) H 04/27/23 06:00 RDW Coeff of Manuel 14.9 % (11.5-14.5) H 04/27/23 06:00 Plt Count 209 K/uL (130-400) 04/27/23 06:00 MPV 10.7 fL (9.4-12.4) 04/27/23 06:00 Sodium 139 mmol/L (136-145) 04/27/23 06:00 Potassium 5.0 mmol/L (3.5-5.1) 04/27/23 06:00 Chloride 105 mmol/L (98-107) 04/27/23 06:00 Carbon Dioxide 29 mmol/L (21-32) 04/27/23 06:00 Anion Gap 5 (3-11) 04/27/23 06:00 BUN 31 mg/dl (6-23) H 04/27/23 06:00 Creatinine 1.16 mg/dl (0.6-1.2) 04/27/23 06:00 Est Cr Clr Drug Dosing 62.0 ml/min 04/27/23 06:00 Est GFR ( Amer) 54.1 ml/min 04/27/23 06:00 Est GFR (Non-Af Amer) 46.7 ml/min 04/27/23 06:00 BUN/Creatinine Ratio 26.7 (10-20) H 04/27/23 06:00 Glucose 146 mg/dl (70-99(Fasting)) H 04/27/23 06:00 Calcium 8.6 mg/dl (8.6-10.3) 04/27/23 06:00 SARS-CoV-2, RNA, NAAT NEGATIVE (NEGATIVE) 04/26/23 Unknown Impressions Knee X-Ray 04/26/23 10:52 XR knee RT 1 or 2V routine CLINICAL HISTORY: Surgical Post Op TECHNIQUE: 2 views of the right knee were obtained. Comparison: None available at the time of this dictation. FINDINGS: Patient is status post total knee arthroplasty with expected postsurgical changes including soft tissue swelling and subcutaneous emphysema. No periarticular lucency or hardware fracture is seen. IMPRESSION: Expected postoperative appearance status post placement of total knee arthroplasty. ACT 112: Negative or not required by law. Electronically signed by: Yung Vee M.D. 04/26/2023 11:26 AM Signed By: <Electronically signed by Reinaldo Henson MD> 04/27/23 1708 <Electronically signed by Philip Lopez PA-C> 04/27/23 07 Created:04/27/23 0724 Total Time Total Time Spent Total Time Spent (In Minutes): 5 Discharge Plan Discharge Items Patient Disposition: Home - Home Health Services Reason For Visit: Right Knee Osteoarthritis Discharge Diagnosis: Right knee osteoarthritis Activity: Per Instructions section Weightbearing Comment: as tolerated with walker Non-emergency contact: Surgeon Call non-emergency contact if: you have any medication questions, your pain is not controlled, your temperature is above 101.5 and your wound has increased redness Follow-up/Referrals: Amadou Mcmahon DO [Surgeon] - ( follow-up with Dr. Mcmahon or his PA in 2 weeks from the day of surgery for your first postoperative visit) Bee Candelario DO [Primary Care Provider] - Diet: Regular Addtl Attending Provider Instructions: ACTIVITY RECOMMENDATIONS: SELF CARE INSTRUCTIONS AFTER TOTAL KNEE REPLACEMENT A. You may need to continue a physical therapy program after discharge from the hospital. There are several options available to you. Your doctor will assist you in selecting the best one for you. 1. An out-patient facility 2 to 3 times a week for therapy or home therapy. 2. Continue working on all exercises taught to you in the hospital. Your goals should be to increase bending of your knee to 90 degrees and beyond and to fully straighten your knee. B. You may progress at your own pace from walking with a walker or crutches to a cane; then to no assistive devices. C. Make walking a part of your daily routine. Be up as much as comfortable with rest periods throughout the day. Rest with leg elevation is very important. Use the ice wrap frequently for the first 3-4 weeks. D. There are no restrictions on activities. You may ride in a car, shop, participate in ssn/ssbn assistant navigator and all social activities. E. Wear the long elastic stockings (JAG hose) 20 hours a day for 2 weeks after surgery. They can be removed several times a day for laundering and for a bath. F. You may shower, no tub baths until cleared by your doctor. SPECIAL CARE INSTRUCTIONS: VERY IMPORTANT TO READ AND REVIEW A. There are a few signs you need to watch for after you are home. Call [facility] if you notice any of the followin. Increased severe knee pain. Some pain is expected especially when you exercise. 2. Increased swelling in your leg or knee; pain or swelling of the calf muscle in either lower leg. 3. Any fluid drainage from the incision. 4. Shortness of breath or chest pain. B. Please call [facility] at if you have any concerns or questions about your operation or recovery. The doctor or his nurse will return your call promptly. C. You must take antibiotics before dental work, bladder, bowel or other surgery. Your doctor will provide you with a permanent care to carry describing this precaution. IMPORTANT: * REMEMBER TO TAKE ASPIRIN, 81 MG, TWICE DAILY FOR 4 WEEKS UNLESS OTHERWISE DIRECTED. THIS IS YOUR BLOOD THINNER. * HIGH RISK PATIENTS MAY BE PRESCRIBED A STRONGER BLOOD THINNER. THIS WILL BE PROVIDED AT DISCHARGE. * CALL IF INCREASED PAIN, REDNESS, DRAINAGE OR FEVER GREATER THAT 101. * WEAR JAG HOSE 20 HOURS PER DAY FOR 2 WEEKS. * BRITTNEY Dressing - This is a large suction dressing covering your incision. This will help pull any excess drainage from the wound and allow your incision to heal properly. You may shower with this if you can keep the unit outside of the shower. If any bleeding or leakage is noted please call your doctor's office. This will remain on your incision for 7 days and then should be removed. This can be done yourself or by the home nursing staff if applicable. The entire unit is disposable once removed. Once removed, keep incision clean and dry. If redness or drainage is noted, please call your surgeon. [phone]. FOLLOW UP VISIT: If appointment is not already scheduled: Please call [facility] to make a follow-up appointment for 2 weeks after your surgery at . Stand-Alone Forms: [place], Pain - Opioid Pain Management, Smoking Cessation Medications and DC Order Prescriptions: New aspirin 81 mg Tablet,Delayed Release (Dr/Ec) 81 mg PO BID 30 Days Qty: 60 0RF acetaminophen [Tylenol Extra Strength] 500 mg Tablet 1,000 mg PO Q8 14 Days Qty: 84 0RF polyethylene glycol 3350 [Miralax] 17 gram powder in packet 17 g PO DAILY PRN (Reason: constipation) Qty: 5 0RF cefadroxil 500 mg capsule 500 mg PO BID Qty: 28 1RF oxycodone 5 mg tablet 5 mg PO Q4H MDD 6 PRN (Reason: pain) Qty: 30 0RF Continued venlafaxine 75 mg Tablet 75 mg PO QAM metoprolol succinate 100 mg Tablet Extended Release 24 Hr 100 mg PO HS ascorbic acid (vitamin C) [Vitamin C] 500 mg Tablet 500 mg PO QAM pantoprazole [Protonix] 40 mg Tablet,Delayed Release (Dr/Ec) 40 mg PO QAM venlafaxine 37.5 mg Tablet 37.5 mg PO Q OTHER DAY gabapentin 300 mg Capsule 300 mg PO DIRECTED rosuvastatin [Crestor] 20 mg Tablet 20 mg PO HS calcium carbonate-vitamin D3 500 mg-3.125 mcg (125 unit) Tablet 1 tab PO BID cholecalciferol (vitamin D3) [Vitamin D3] 50 mcg (2,000 unit) Tablet 50 mcg PO BID melatonin 2.5 mg Tablet,Chewable 2.5 mg PO HS Tart Santos Extract 1,000 mg Capsule 1,000 mg PO BID biotin 5,000 mcg Tablet,Chewable 5,000 mcg PO QAM Keto Supplement 1 dose PO BID Discontinued aspirin [Aspir-81] 81 mg Tablet,Delayed Release (Dr/Ec) 81 mg PO QAM tramadol 50 mg Tablet 50 mg PO BID acetaminophen [Tylenol Extra Strength] 500 mg Tablet 1,000 mg PO BID Admission Data Admit Date/Time: 04/26/23 10:52 Attending Provider: Amadou Mcmahon Admit Provider: Amadou Mcmahon Primary Care Provider: Bee Candelario Other Interventions: Discharge Summary Assessment (RN) Last Done: 04/27/23 11:11
== END 2023-04-27 11:48 | disposition home health service (06) ==
LOC: 3E 05:58 → ASU 05:58